=== PATIENT | female | born 1990 | race African-American/Black ===

== ENCOUNTER 2017-04-06 11:41 | Emergency (ER) | payer SELFPAY ==
[~2017-04-06] VITALS: Ht 160 cm; Wt 63.5 kg
--- NOTE | 2017-04-06 13:54 | PHYS DOC ---
Past Medical History Past Medical History: No Pertinent History Past Surgical History: No Surgical History Alcohol Use: None Drug Use: None Adult General Chief Complaint Chief Complaint: VAGINAL PROBLEM HPI HPI Patient is a 27 year old female who complains of vaginal itching, vaginal discharge with odor, for one week. She uses condoms. She doesn't think she is . Review of Systems Review of Systems Constitutional: Denies fever or chills [] Current Medications Current Medications Current Medications Medications (Trade) Dose Ordered Sig/Anselmo Start Time Stop Time Status Last Admin Dose Admin Fluconazole (Diflucan) 100 mg 1X ONCE 04/06/17 14:00 04/06/17 14:01 DC 04/06/17 14:04 100 MG Allergies Allergies Allergies Coded Allergies Type Severity Reaction Last Updated Verified Penicillins Allergy Intermediate FEVER 09/22/15 Yes Physical Exam Physical Exam Constitutional: Well developed, well nourished, no acute distress, non-toxic appearance. [] HENT: Normocephalic, atraumatic, bilateral external ears normal, nose normal. [ ] Eyes: conjunctiva normal, no discharge. [] Neck: Normal range of motion, no tenderness, supple, no stridor. [] Pelvic: External genitalia normal in appearance. Vaginal vault with copious thick greenish white discharge. Cervix normal in appearance without cervicitis. Bimanual exam: Negative cervical motion tenderness. Uterus not enlarged or tender. Adnexa without tenderness or masses. Skin: Warm, dry, no erythema, no rash. [] Extremities: No tenderness, no cyanosis, no clubbing, ROM intact, no edema. [] Neurologic: Alert and oriented X 3, normal motor function, no focal deficits noted. [] Current Patient Data Vital Signs Vital Signs Date Time Temp Pulse Resp B/P (MAP) Pulse Ox O2 Delivery O2 Flow Rate FiO2 04/06/17 14:04 68 16 122/57 (78) 99 Room Air 04/06/17 12:27 98.1 98.1 Lab Values Laboratory Tests Test 04/06/17 12:23 04/06/17 12:37 POC Urine HCG, Qualitative Hcg negative (Negative) Chlamydia DNA Probe Negative (Negative) Neisseria gonorrhoeae DNA Probe Negative (Negative) Microbiology 04/06/17 Wet Prep - Final, Complete EKG EKG [] Radiology/Procedures Radiology/Procedures [] Course & Med Decision Making Course & Med Decision Making Pertinent Labs and Imaging studies reviewed. (See chart for details) 27-year-old female with an abnormal vaginal discharge but otherwise normal pelvic exam. Wet prep was positive for both yeast and clue cells. We will treat her with a 1 time dose of Diflucan here in the ED and a week of metronidazole. test is negative. GC, chlamydia were sent. [] Dragon Disclaimer Dragon Disclaimer This electronic medical record was generated, in whole or in part, using a voice recognition dictation system. Departure Departure Impression: Primary Impression: Vaginal candidiasis Additional Impression: Bacterial vaginosis Disposition: HOME, SELF-CARE Condition: STABLE Referrals: NO PCP (PCP) Patient Instructions: Bacterial Vaginosis, [id number] Additional Instructions: Today, tests showed that you have two infections causing discharge. You have a yeast infection which we treated with a 1 time dose of can which treats yeast. That should clear up in a day or 2. You also have bacterial vaginosis, a bacterial infection that is treated with metronidazole. Take as directed. Neither of these conditions is a sexually transmitted infection. We also did test for gonorrhea and chlamydia, those results will not be back today, you will be contacted if either of those is positive, you will need separate treatment if that is the case. Scripts Metronidazole (METRONIDAZOLE) 500 Mg Tablet 1 TAB PO BID for bacterial vaginosis, #14 TAB Prov: VIKTORIYA THOMAS MD 04/06/17 Problem Qualifiers VIKTORIYA THOMAS MD Apr 06, 2017 13:54
[2017-04-06] MEDS ORDERED: FLUCONAZOLE 100 MG TABLET. PO ONE (14:00)
[2017-04-06] MEDS ORDERED: METR500T8 PO (14:02)
[2017-04-06 14:04] VITALS: BP 122/57
== END 2017-04-06 14:08 | disposition home or self-care (01) ==
LOC: ER 11:41
DX: B37.3 Candidiasis of vulva and vagina (principal); N76.0 Acute vaginitis; B96.89 Other specified bacterial agents as the cause of diseases classified elsewhere; Z88.0 Allergy status to penicillin
CPT/HCPCS: 81025; 87491; 87591; 99284; Q0111